=== PATIENT | male | born 1960 | race African-American/Black ===

== ENCOUNTER 2017-08-27 16:46 | Emergency (ER) | payer MEDICAID ==
[~2017-08-27] VITALS: Ht 170.2 cm; Wt 93.0 kg
[2017-08-27] MEDS ORDERED: IBUPROFEN 600MG TABLET PO ONE (17:05)
[2017-08-27 17:09] VITALS: BP 118/67
== END 2017-08-27 17:53 | disposition home or self-care (01) ==
LOC: ER 16:46
DX: S86.911A Strain of unspecified muscle(s) and tendon(s) at lower leg level, right leg, initial encounter (principal); S16.1XXA Strain of muscle, fascia and tendon at neck level, initial encounter; S00.83XA Contusion of other part of head, initial encounter; F12.10 Cannabis abuse, uncomplicated; V49.88XA Car occupant (driver) (passenger) injured in other specified transport accidents, initial encounter; Y93.89 Activity, other specified; Y92.89 Other specified places as the place of occurrence of the external cause; Y99.8 Other external cause status
CPT/HCPCS: 99282

== ENCOUNTER 2017-11-05 21:24 | Emergency (ER) | payer MEDICAID ==
[~2017-11-05] VITALS: Ht 170.2 cm; Wt 92.0 kg
[2017-11-06] MEDS ORDERED: TETRACAINE 0.5% OPHTH DROPS 4ML OP ONE (01:15)
[2017-11-06] MEDS ORDERED: FLUORESCEIN SODIUM 1MG/STRIP OP ONE (01:15)
[2017-11-06 02:01] VITALS: BP 125/87
[2017-11-06] MEDS ORDERED: BACITRACIN ZINC OINT UDPKT TOP ONE (02:45)
== END 2017-11-06 03:00 | disposition home or self-care (01) ==
LOC: ER 23:23
DX: S20.211A Contusion of right front wall of thorax, initial encounter (principal); H11.32 Conjunctival hemorrhage, left eye; F12.10 Cannabis abuse, uncomplicated; M25.511 Pain in right shoulder; Y08.89XA Assault by other specified means, initial encounter; Y93.89 Activity, other specified; Y92.89 Other specified places as the place of occurrence of the external cause; Y99.8 Other external cause status
CPT/HCPCS: 70450; 70486; 71111; 73030; 99284

== ENCOUNTER 2018-04-29 18:44 | Emergency (ER) | payer MEDICAID | END 2018-04-29 20:30 | disposition left against medical advice (07) | LOC: ER 18:44 | DX: Z53.21 Procedure and treatment not carried out due to patient leaving prior to being seen by health care provider (principal) ==